=== PATIENT | female | born 1990 | race Caucasian/White ===

== ENCOUNTER → 2019-10-27 | Outpatient (CLI) | payer OTHER ==
[~2019-10-27] MED LIST: ACHD5005 PO; DOCU-143 PO; LAMO200T2 PO; LEVE750T5 PO; MUCINEX SINUS MAX NSEACH; NF-LAMO200 PO; NORG1TAB14 PO
[2019-10-27 12:36] LABS: BASOPHILS % (AUTO) 0 % (0-10); EOSINOPHILS # (AUTO) 0.1 10^3/uL (0.0-0.3); EOSINOPHILS % (AUTO) 1 % (0-10); HEMATOCRIT 41 % (35-52); HEMOGLOBIN 13.5 G/DL (11.5-16.0); LYMPHOCYTES # (AUTO) 2.1 X 10^3 (1.0-4.0); LYMPHOCYTES % (AUTO) 49 % (12-44); MEAN CORPUSCULAR HEMOGLOBIN 30 PG (25-34); MEAN CORPUSCULAR HGB CONC 33 G/DL (32-36); MEAN CORPUSCULAR VOLUME 88 FL (80-99); MEAN PLATELET VOLUME 10.5 FL (7.4-10.4); MONOCYTES # (AUTO) 0.3 X 10^3 (0.0-1.0); MONOCYTES % (AUTO) 6 % (0-12); NEUTROPHILS # (AUTO) 1.9 X 10^3 (1.8-7.8); NEUTROPHILS % (AUTO) 44 % (42-75); PLATELET COUNT 241 10^3/uL (130-400); RED CELL DISTRIBUTION WIDTH 12.9 % (10.0-14.5); WHITE BLOOD COUNT 4.3 10^3/uL (4.3-11.0)
[2019-10-27 12:55] LABS: ALANINE AMINOTRANSFERASE 13 U/L (0-55); ALBUMIN 4.7 GM/DL (3.2-4.5); ALKALINE PHOSPHATASE 46 U/L (40-136); BILIRUBIN,TOTAL 0.6 MG/DL (0.1-1.0); BUN/CREATININE RATIO 13; CALCIUM 9.2 MG/DL (8.5-10.1); CARBON DIOXIDE 21 MMOL/L (21-32); CHLORIDE 104 MMOL/L (98-107); CREATININE SERUM 0.83 MG/DL (0.60-1.30); GFR ESTIMATED > 60; GLUCOSE 89 MG/DL (70-105); POTASSIUM 3.8 MMOL/L (3.6-5.0); SODIUM 138 MMOL/L (135-145); TOTAL PROTEIN 7.5 GM/DL (6.4-8.2)
== END ==
LOC: LAB 11:53
PROVIDERS: ATTEND Orthopaedic Surgery
DX: G40.219 Localization-related (focal) (partial) symptomatic epilepsy and epileptic syndromes with complex partial seizures, intractable, without status epilepticus (principal)
CPT/HCPCS: 36415; 80053; 80175; 80177; 85025

== ENCOUNTER → 2021-03-03 | Outpatient (CLI) | payer OTHER ==
[~2021-03-03] MED LIST changes: -LAMO200T2 PO; +LAMO200T5 PO
--- NOTE | 2021-03-03 15:18 | Diagnostic Imaging Report ---
INDICATION: survey. TECHNIQUE: Multiple real-time grayscale images were obtained over the gravid uterus. COMPARISON: None FINDINGS: There is a single fetus in a breech presentation. heart rate was recorded at 140 bpm. Placenta is anterior. Amniotic fluid volume is normal. kidneys, bladder and stomach are unremarkable. brain is unremarkable. There is a four-chamber heart. There is a three-vessel cord with normal insertion. spine is grossly unremarkable, although longitudinal images of the spine are somewhat limited due to position. Biometrical measurements are as follows: Biparietal 4.57 cm, age 19 weeks 6 days. Head circumference 16.59 cm, age 19 weeks 3 days. Abdominal circumference 13.66 cm, age 19 weeks 1 days. Femur length 3.11 cm, age 19 weeks 5 days. Sonographic estimate age: 19 weeks 4 days. Sonographic estimated date of delivery: 07/24/21. Estimated Weight: 289 gm (+/- 42 gm). LMP percentile: 34%. heart rate: 140 beats per minute. number: 1 of 1. IMPRESSION: Single live IUP 19 weeks 4 days gestational age. Estimated date of confinement sonographically is 07/24/2021. Dictated by: Dictated on workstation # [id number]
== END ==
LOC: RAD 09:30
PROVIDERS: ATTEND Obstetrics & Gynecology
DX: Z34.02 Encounter for supervision of normal first pregnancy, second trimester (principal); Z3A.19 19 weeks gestation of pregnancy
CPT/HCPCS: 76805

== ENCOUNTER 2021-03-27 23:44 | Emergency (ER) | payer OTHER ==
[~2021-03-27] VITALS: Ht 162.6 cm; Wt 72.7 kg
[2021-03-27] MEDS ORDERED: ROCURONIUM 10 MG/ML 5 ML SYRINGE IV ONE (23:47)
[2021-03-27] MEDS ORDERED: ETOMIDATE IV SOLN 20 MG/10 ML VIAL IV ONE (23:47)
[2021-03-27] MEDS ORDERED: SODIUM BICARB 8.4% 50 MEQ/50 ML (ABBOTT) SYR INJ ONE (23:47)
[2021-03-27] MEDS ORDERED: LORazepam INJ 2 MG/ML (ATIVAN) VIAL ONE (23:49)
[2021-03-27] MEDS ORDERED: LACTATED RINGERS 1,000 ML IV STA (23:57)
[2021-03-28] MEDS ORDERED: PIPERACILLIN SODIUM/TAZOBACTAM 4.5 GM in NS (IVPB) 100 ML IV ONE ×2
[2021-03-28] MEDS ORDERED: MAGNESIUM 1 GM/100 ML IVPB 100 ML IV ONE
[2021-03-28 00:01] LABS: BASOPHILS # (AUTO) 0.1 10^3/uL (0.0-0.1); BASOPHILS % (AUTO) 0 % (0-10); EOSINOPHILS # (AUTO) 0.2 10^3/uL (0.0-0.3); EOSINOPHILS % (AUTO) 1 % (0-10); HEMATOCRIT 43 % (35-52); HEMOGLOBIN 13.2 g/dL (11.5-16.0); LYMPHOCYTES # (AUTO) 6.8 10^3/uL (1.0-4.0); LYMPHOCYTES % (AUTO) 19 % (12-44); MEAN CORPUSCULAR HEMOGLOBIN 30 pg (25-34); MEAN CORPUSCULAR HGB CONC 31 g/dL (32-36); MEAN CORPUSCULAR VOLUME 98 fL (80-99); MEAN PLATELET VOLUME 10.9 fL (9.0-12.2); MONOCYTES # (AUTO) 2.2 10^3/uL (0.0-1.0); MONOCYTES % (AUTO) 6 % (0-12); NEUTROPHILS # (AUTO) 23.6 10^3/uL (1.8-7.8); NEUTROPHILS % (AUTO) 65 % (42-75); PLATELET COUNT 319 10^3/uL (130-400)
[2021-03-28 00:04] LABS: WHITE BLOOD COUNT 36.2 10^3/uL (4.3-11.0)
--- NOTE | 2021-03-28 00:09 | ED Neurological Problem ---
General Stated Complaint: SEIZURES Source: other Exam Limitations: clinical condition (TY RUIZ) History of Present Illness Date Seen by Provider: March 27, 2021 Time Seen by Provider: 23:45 Initial Comments Patient ER by private conveyance with her significant other chief complaint she started having seizures about 2 hours ago and is woke up only 1 time from it. She has been vomiting. No history of fever. She has a history of epilepsy. She is 23 weeks and 1 day under the care of Dr. Jarrett. Her neurologist is in [place]. No recent history of illness. The patient is unable to co ntribute any history and appears to be postictal. (TY RUIZ) Allergies and Home Medications Allergies Coded Allergies: No Known Drug Allergies (Unverified , 11/29/15) Home Medications Docusate Sodium 100 Mg Capsule, 100 MG PO BID Prescribed by: YEE BURGOS on 11/30/15 0856 Hydrocodone Bit/Acetaminophen 1 Each Tablet, 1 TAB PO Q4H PRN Prescribed by: YEE BURGOS on 11/30/15 0856 Lamotrigine 200 Mg Tablet, 200 MG PO DAILY, (Reported) Lamotrigine 200 Mg Tab, 400 MG PO HS, (Reported) TAKES 2 (200 MG) TABLETS Levetiracetam 750 Mg Tablet, 750 MG PO BID, (Reported) Norgestimate-Ethinyl Estradiol 1 Each Tablet, 1 TAB PO DAILY, (Reported) [Mucinex Sinus Max] , 2-3 SPRAYS NSEACH Q12H PRN for CONGESTION, (Reported) Patient Home Medication List Home Medication List Reviewed: Yes (TY RUIZ) Review of Systems Review of Systems Constitutional: see HPI (TY RUIZ) All Other Systems Reviewed Negative Unless Noted: Yes (TY RUIZ) Past Azzffde-Cnfafv-Vwbosb Hx Immunizations Up To Date PED Vaccines UTD: Yes (TY RUIZ) Past Medical History Currently Using CPAP: No Currently Using BIPAP: No Seizure Disorder Reproductive Disorders: No Female Reproductive Disorders: Denies Sexually Transmitted Disease: No HIV/AIDS: No Adverse Reaction/Blood Tranf: No (TY RUIZ) Family Medical History Alcoholism 19 MOTHER Cardiovascular disease 19 FATHER Drug abuse 19 MOTHER Hypercholesterolemia 19 FATHER Physical Exam Vital Signs Vital Signs - First Documented 03/27/21 03/28/2103/28/21 23:50 00:02 01:25 Temp 36.7 Pulse 124 Resp 26 B/P (MAP) 109/74 (86) Pulse Ox 95 O2 Delivery Room Air O2 Flow Rate 10.00 FiO2 40 (MAGGIE CAMEJO MD) Vital Signs Capillary Refill : (TY RUIZ) Height, Weight, BMI Height: '" Weight: lbs. oz. kg; 26.37 BMI Method: General Appearance: WD/WN, no apparent distress HEENT: PERRL/EOMI, pharynx normal Neck: full range of motion, normal inspection Respiratory: no accessory muscle use, rales, rhonchi Cardiovascular: normal peripheral pulses, regular rate, rhythm Peripheral Pulses: 2+ Radial Pulses (R), 2+ Radial Pulses (L) Gastrointestinal: normal bowel sounds, non tender, soft Extremities: non-tender, normal inspection, normal capillary refill Neurologic/Psychiatric: alert (GCS 10), other (Postictal) Motor/Sensory: no motor deficit (Moving all 4 limbs 5 out of 5 motor strength) Skin: normal color, warm/dry (TY RUIZ) Focused Exam Lactate Level 03/27/21 23:55: Lactic Acid Level 19.28*H 03/28/21 02:17: Lactic Acid Level 6.30*H (MAGGIE CAMEJO MD) Lactic Acid Level Laboratory Tests Test 03/27/21 23:55 03/28/21 02:17 Lactic Acid Level 19.28 MMOL/L (0.50-2.00) *H 6.30 MMOL/L (0.50-2.00) *H (MAGGIE CAMEJO MD) Procedures/Interventions Reason for Intubation: Airway protection, metabolic acidosis, GCS from a 10 down to a 8 Date of ETT Placement: Mar 28, 2021 Time of ETT Placement: 01:29 Intubation Method: orotracheal Tube Size: 7.5 Medications: Etomidate (20 mg), Rocuronium (50 mg) Positive End Tide CO2: Yes (Fogged the tube on expiration) Breath Sounds after Intubation: right greater than left Intubation Complications: no complications Post Intubation Xray: Yes Tip of the ET tube at the right main bronchus. Anesthesia through etomidate and paralysis through rocuronium we prepared the patient had RT and appropriate staff at the bedside using a video laryngoscope were able to easily pass a 7.5 ET tube at 24 at the teeth. Patient's oxygen saturations did not go below 99%. We retracted the ET tube to 22 at the teeth and resecured it. Patient had good air sounds bilaterally and repeat chest x- ray demonstrated ET tube about 2-1/2 cm above the nora. Propofol was initiated at 20 mcg/kg (TY RUIZ) Progress/Results/Core Measures Results/Orders Lab Results Laboratory Tests Test 03/27/21 23:55 03/28/21 00:08 03/28/21 00:19 03/28/21 00:31 Range/Units White Blood Count 36.2 *H 4.3-11.0 10^3/uL Red Blood Count 4.42 3.80-5.11 10^6/uL Hemoglobin 13.2 11.5-16.0 g/dL Hematocrit 43 35-52 % Mean Corpuscular Volume 98 80-99 fL Mean Corpuscular Hemoglobin 30 25-34 pg Mean Corpuscular Hemoglobin Concent 31 L 32-36 g/dL Red Cell Distribution Width 13.6 10.0-14.5 % Platelet Count 319 130-400 10^3/uL Mean Platelet Volume 10.9 9.0-12.2 fL Immature Granulocyte % (Auto) 9 % Neutrophils (%) (Auto) 65 42-75 % Lymphocytes (%) (Auto) 19 12-44 % Monocytes (%) (Auto) 6 0-12 % Eosinophils (%) (Auto) 1 0-10 % Basophils (%) (Auto) 0 0-10 % Neutrophils # (Auto) 23.6 H 1.8-7.8 10^3/uL Lymphocytes # (Auto) 6.8 H 1.0-4.0 10^3/uL Monocytes # (Auto) 2.2 H 0.0-1.0 10^3/uL Eosinophils # (Auto) 0.2 0.0-0.3 10^3/uL Basophils # (Auto) 0.1 0.0-0.1 10^3/uL Immature Granulocyte # (Auto) 3.2 H 0.0-0.1 10^3/uL Neutrophils % (Manual) 65 % Lymphocytes % (Manual) 18 % Monocytes % (Manual) 9 % Band Neutrophils 8 % Blood Morphology Comment NORMAL Prothrombin Time 13.6 12.2-14.7 SEC INR Comment 1.0 0.8-1.4 Activated Partial Thromboplast Time 29 24-35 SEC Fibrinogen 506 H 221-496 MG/DL Sodium Level 141 135-145 MMOL/L Potassium Level 4.0 3.6-5.0 MMOL/L Chloride Level 102 98-107 MMOL/L Carbon Dioxide Level < 5 *L 21-32 MMOL/L Anion Gap 34 H 5-14 MMOL/L Blood Urea Nitrogen 8 7-18 MG/DL Creatinine 1.23 0.60-1.30 MG/DL Estimat Glomerular Filtration Rate 52 BUN/Creatinine Ratio 7 Glucose Level 123 H 70-105 MG/DL Lactic Acid Level 19.28 *H 0.50-2.00 MMOL/L Calcium Level 9.9 8.5-10.1 MG/DL Corrected Calcium 9.5 8.5-10.1 MG/DL Magnesium Level 2.6 H 1.6-2.4 MG/DL Total Bilirubin 0.2 0.1-1.0 MG/DL Aspartate Amino Transf (AST/SGOT) 26 5-34 U/L Alanine Aminotransferase (ALT/SGPT) 17 0-55 U/L Alkaline Phosphatase 103 40-136 U/L Total Creatine Kinase 116 29-168 U/L C-Reactive Protein High Sensitivity 0.31 0.00-0.50 MG/DL Total Protein 8.1 6.4-8.2 GM/DL Albumin 4.5 3.2-4.5 GM/DL Salicylates Level < 5.0 L 5.0-20.0 MG/DL Acetaminophen Level < 10 L 10-30 UG/ML Serum Alcohol < 10 <10 MG/DL Influenza Type A (RT-PCR) Not Detected Not Detecte Influenza Type B (RT-PCR) Not Detected Not Detecte SARS-CoV-2 RNA (RT-PCR) Not Detected Not Detecte Blood Gas Puncture Site LEFT RADIAL Blood Gas Patient Temperature 36.7 Arterial Blood pH 6.94 *L 7.37-7.43 Arterial Blood Partial Pressure CO2 38 35-45 MMHG Arterial Blood Partial Pressure O2 135 H 79-93 MMHG Arterial Blood HCO3 8 *L 23-27 MMOL/L Arterial Blood Total CO2 9.0 L 21.0-31.0 MMOL/L Arterial Blood Oxygen Saturation 96 94-100 % Arterial Blood Base Excess -22.0 L -2.5-2.5 MMOL/L Anirudh Test YES-POS Blood Gas Ventilator Setting NO Blood Gas Inspired Oxygen ROOM AIR Urine Color YELLOW Urine Clarity CLEAR Urine pH 5.5 5-9 Urine Specific [place] >=1.030 1.016-1.022 Urine Protein 2+ H NEGATIVE Urine Glucose (UA) NEGATIVE NEGATIVE Urine Ketones NEGATIVE NEGATIVE Urine Nitrite NEGATIVE NEGATIVE Urine Bilirubin NEGATIVE NEGATIVE Urine Urobilinogen 0.2 < = 1.0 MG/DL Urine Leukocyte Esterase NEGATIVE NEGATIVE Urine RBC (Auto) 2+ H NEGATIVE Urine RBC 2-5 H /HPF Urine WBC RARE /HPF Urine Squamous Epithelial Cells 5-10 /HPF Urine Crystals PRESENT H /LPF Urine Amorphous Sediment LARGE KAREEM URATES H /LPF Urine Bacteria TRACE /HPF Urine Casts PRESENT /LPF Urine Hyaline Casts 0-2 H /LPF Urine Mucus NEGATIVE /LPF Urine Culture Indicated NO Urine Opiates Screen NEGATIVE NEGATIVE Urine Oxycodone Screen NEGATIVE NEGATIVE Urine Methadone Screen NEGATIVE NEGATIVE Urine Propoxyphene Screen NEGATIVE NEGATIVE Urine Barbiturates Screen NEGATIVE NEGATIVE Ur Tricyclic Antidepressants Screen NEGATIVE NEGATIVE Urine Phencyclidine Screen NEGATIVE NEGATIVE Urine Amphetamines Screen NEGATIVE NEGATIVE Urine Methamphetamines Screen NEGATIVE NEGATIVE Urine Benzodiazepines Screen NEGATIVE NEGATIVE Urine Cocaine Screen NEGATIVE NEGATIVE Urine Cannabinoids Screen NEGATIVE NEGATIVE Test 03/28/21 02:17 03/28/21 02:20 03/28/21 07:13 03/28/21 07:18 Range/Units Lactic Acid Level 6.30 *H 0.50-2.00 MMOL/L Blood Gas Puncture Site LEFT RADIAL L RADIAL Blood Gas Patient Temperature 37.0 36.7 Arterial Blood pH 7.41 7.45 H 7.37-7.43 Arterial Blood Partial Pressure CO2 33 L 28 L 35-45 MMHG Arterial Blood Partial Pressure O2 154 H 74 L 79-93 MMHG Arterial Blood HCO3 21 L 19 L 23-27 MMOL/L Arterial Blood Total CO2 21.7 19.8 L 21.0-31.0 MMOL/L Arterial Blood Oxygen Saturation 95 96 94-100 % Arterial Blood Base Excess -3.2 L -4.5 L -2.5-2.5 MMOL/L Anirudh Test YES-POS YES-POS Blood Gas Ventilator Setting YES YES Blood Gas Inspired Oxygen 40% NA White Blood Count 17.1 H 4.3-11.0 10^3/uL Red Blood Count 3.43 L 3.80-5.11 10^6/uL Hemoglobin 10.3 #L 11.5-16.0 g/dL Hematocrit 31 L 35-52 % Mean Corpuscular Volume 91 80-99 fL Mean Corpuscular Hemoglobin 30 25-34 pg Mean Corpuscular Hemoglobin Concent 33 32-36 g/dL Red Cell Distribution Width 13.8 10.0-14.5 % Platelet Count 212 130-400 10^3/uL Mean Platelet Volume 11.2 9.0-12.2 fL Immature Granulocyte % (Auto) 3 % Neutrophils (%) (Auto) 83 H 42-75 % Lymphocytes (%) (Auto) 7 L 12-44 % Monocytes (%) (Auto) 7 0-12 % Eosinophils (%) (Auto) 0 0-10 % Basophils (%) (Auto) 0 0-10 % Neutrophils # (Auto) 14.2 H 1.8-7.8 10^3/uL Lymphocytes # (Auto) 1.3 1.0-4.0 10^3/uL Monocytes # (Auto) 1.2 H 0.0-1.0 10^3/uL Eosinophils # (Auto) 0.0 0.0-0.3 10^3/uL Basophils # (Auto) 0.1 0.0-0.1 10^3/uL Immature Granulocyte # (Auto) 0.4 H 0.0-0.1 10^3/uL Sodium Level 137 135-145 MMOL/L Potassium Level 3.1 L 3.6-5.0 MMOL/L Chloride Level 108 H 98-107 MMOL/L Carbon Dioxide Level 15 L 21-32 MMOL/L Anion Gap 14 5-14 MMOL/L Blood Urea Nitrogen 8 7-18 MG/DL Creatinine 0.70 0.60-1.30 MG/DL Estimat Glomerular Filtration Rate > 60 BUN/Creatinine Ratio 11 Glucose Level 113 H 70-105 MG/DL Calcium Level 8.3 L 8.5-10.1 MG/DL Magnesium Level 2.2 1.6-2.4 MG/DL (MAGGIE CAMEJO MD) Micro Results Microbiology 03/28/21 Blood Culture - Preliminary, Resulted No growth 03/27/21 Blood Culture - Preliminary, Resulted No growth (MAGGIE CAMEJO MD) My Orders Orders - MAGGIE CAMEJO MD Basic Metabolic Panel (03/28/21 06:31) Magnesium (03/28/21 06:31) Chest 1 View, Ap/Pa Only (03/28/21 06:31) Lactated Ringers (Lr 1000 Ml Iv Solution (03/28/21 07:00) Arterial Blood Gas (03/28/21 07:18) Propofol Injection (Diprivan Injection) (03/28/21 07:09) Propofol Drip (Icu) (Diprivan Drip (Icu) (03/28/21 07:10) Morphine Injection (Morphine Injection (03/28/21 07:37) Sputum Culture (03/28/21 07:38) Cbc With Automated Diff (03/28/21 07:43) Potassium Cl 10meq/50ml Ivpb (Kcl 10 Meq (03/28/21 08:15) Morphine Injection (Morphine Injection (03/28/21 08:56) Rocuronium 5 Ml Syringe (Rocuronium 5 Ml (03/27/21 23:47) Etomidate Injection (Amidate Injection) (03/27/21 23:47) Sodium Bicarbonate 8.4% Syr (Sodium Bica (03/27/21 23:47) Ekg Tracing (03/28/21 00:01) Propofol Drip (Icu) (Diprivan Drip (Icu) (03/28/21 09:00) (MAGGIE CAMEJO MD) Medications Given in ED (MAGGIE CAMEJO MD) Vital Signs/I&O 03/27/21 03/28/21 03/28/21 03/28/21 23:50 00:02 01:25 02:37 Temp 36.7 Pulse 124 121 128 Resp 26 40 35 B/P (MAP) 109/74 (86) Pulse Ox 95 95 94 96 O2 Delivery Room Air OxyMask O2 Flow Rate 10.00 FiO2 40 40 03/28/21 03/28/21 03/28/21 06:24 07:29 09:28 Pulse 118 117 100 Resp 23 12 B/P (MAP) 108/63 101/64 Pulse Ox 96 98 O2 Delivery Mechanical Ventilator FiO2 30 (MAGGIE CAMEJO MD) Progress Progress Note #1: Time: 00:05 Progress Note Patient has coarse lung sounds and oxygen saturations 94 to 95% on room air with nonlabored breathing. She has emesis at her nostrils. A nasopharyngeal airway was placed and she was able to deep suction out a fair amount of emesis through the MPA. Put her on Zosyn got some blood cultures chest x-ray ordered labs. We will check a magnesium level. She does not have any edema and her blood pressure is 109/60 so she does not appear to be eclamptic. We will give her a gram of magnesium in addition to a couple liters of fluid and treat her for presumed aspiration pneumonia. We will get a Covid swab. ABG. She has good end-tidal CO2 in the low 30s. She has bruises on her forehead as well as her leg. We will get a CT of her head and C-spine since we do not know she had any trauma from falling from the seizure. Shortly after arrival she had about a 45-second seizure and was given 2 mg Ativan IV. Progress Note #2: Time: 00:20 Progress Note After the first dose of Ativan she was given a second dose of Ativan 2 mg IV because she had another 1 minute for second tonic-clonic seizure. Toxicology panel was added. We have been able to suction up some more secretions. ABG was obtained. Blood pressure 118/64. Progress Note #3: Time: 00:58 Progress Note ABG metabolic acidosis. Expected lactic acidosis and elevated white count due to likely aspiration and recent seizure. Status epilepticus. She is oxygenating well. We did give her some supplemental oxygen and also another milligram of Ativan before going down for a CT of her head. We will also get dopplered heart tones at 150-155. Unable to complete a CT so we elected to go ahead and intubate to further protect her airway and because of her lack of neurologic recovery and metabolic acidosis. Progress Note #4: Time: 01:48 Progress Note Family has been updated throughout the process as well as been allowed to come back and visit with her one at a time. We did have a discussion with the significant other, mom and dad. We explained why we intubated and that the options for transfer to a facility with appropriate neurology care were explored and we could try [facility]. They said that [facility] is closer for family and would prefer to go there. [facility] advises that it may be here later in the morning before they can accept her because of a shortage of critical care beds. We paged them and they will call us back with a physician. Progress Note #5: Time: 02:27 Progress Note Got up on her propofol and were going to initiate a 60 mg/kg bolus of Keppra IV. We have given her 1 g of Keppra and will give 2 more grams and reassess for a total of 3 g before we give her the fourth gram for treatment of refractory status epilepticus. Repeat ABG demonstrated good improvement of her metabolic acidosis and her lactate was closing now down to 6. We are going to give her some IV fluids at 150 an hour which is a little less than 1-1/2 times maintenance. We increased her propofol to 40 mcg/kg/min in conjunction with the laborer brush clearing's request. We also decreased her FiO2 to 30% and she is maintaining good saturations in 97 to 99% range. Progress Note #6: Time: 07:00 Progress Note Turned over care of the patient to Dr. Garcia. Discussed the case in front of the significant other and answered questions. The plan is to repeat Zosyn and another couple hours when it is due as well as recheck a BMP, chest x-ray. (TY RUIZ) Progress Note #1: Time: 06:49 Progress Note Care of this patient was assumed from Dr. Ruiz at shift change. Bedside report was received. Patient appears fairly comfortable on the ventilator. We will obtain morning labs, ABG, and chest x-ray as we are still awaiting transfer. Transfer is pending bed availability at [facility]. We have provided the significant other with an update. Blood pressures have been low normotensive. We will administer a 500 mL LR bolus and continue to monitor. Progress Note #2: Time: 08:11 Progress Note ABG and labs were reviewed. Based on ABG results we will increase FiO2 to 40% and decrease rate to 12. Blood pressure has improved with fluid bolus. Patient did seem a bit restless and received morphine 4 mg IV which seemed to help. Potassium is low and we will replace that by IV route. [facility] [place]. They still do not have an open bed. I checked with the [facility] in [place] after shift change and spoke with Dr. Aldana (laborer brush clearing) and (urologist). While they now have a bed available, they do not have continuous EEG capability which this patient will require. For that reason they declined transfer. I did confirm with [facility] that continuous EEG monitoring is available there. We have also checked with flight crews to determine if transfer by flight is possible. Currently there are no aircraft available due to availability and/or weather restrictions. Patient's mother has been updated. Patient has not exhibited any suspected seizure-like activity since I assumed care. Progress Note #3: Time: 08:32 Progress Note [facility] has provided bed assignment. Patient remained stable at this time. Air transportation is not possible due to weather limitations. Patient will transfer by [facility]. heart tones were 150. (MAGGIE CAMEJO MD) Initial ECG Impression Date: Mar 28, 2021 Initial ECG Impression Time: 00:01 Initial ECG Rate: 119 Initial ECG Rhythm: S.Tach Initial ECG Intervals: Normal Initial ECG Impression: Normal, Nonspecific Changes Comment Sinus tachycardia without clinically relevant ST elevation. (TY RUIZ) Diagnostic Imaging Diagonstic Imaging: Xray Plain Films/CT/US/NM/MRI: chest Comments ET tube 2 cm above the nora with no evidence of infiltrates or pneumothorax. NAME: ARLENE LLOYD MED REC#: [id number] PT STATUS: REG ER : 1990 PHYSICIAN: TY RUIZ MD ADMIT DATE: 03/27/21/ER Draft Date of Exam:03/28/21 CHEST 1 VIEW, AP/PA ONLY CHEST 1 VIEW, AP/PA ONLY Indication: Intubation, seizure Comparison: None available. Findings: ET tube has tip 3.5 cm above the nora. Nasogastric tube has tip and side-port in the proximal stomach. Low lung volumes with no consolidations. Posterior lower lobes are poorly evaluated by portable radiography. No pleural effusion or pneumothorax. Normal cardiac silhouette. Impression: 1. Well-positioned support devices. 2. No acute process by radiography. Dictated on workstation # [id number] Dict: 03/28/2130 Trans: 03/28/21 0647 DIANN [id number] Interpreted by: FAUSTO CRUZ MD Electronically signed by: Reviewed: Reviewed by Me Diagonstic Imaging: CT (Without IV contrast) Plain Films/CT/US/NM/MRI: c-spine, head Comments No acute findings CT head. No acute cervical spine findings. Reviewed: [facility], Reviewed by Me (TY RUIZ) Comments NAME: ARLENE LLOYD [facility] REC#: [id number] PT STATUS: REG ER : 1990 PHYSICIAN: TY RUIZ MD ADMIT DATE: 03/27/21/ER Signed Date of Exam:03/28/21 CT HEAD/CERVICAL SPINE WO PROCEDURE: CT head and CT cervical spine without contrast. TECHNIQUE: Multiple contiguous axial images were obtained through the brain and cervical spine without the use of intravenous contrast. Sagittal and coronal reformations through the cervical spine were then performed. Auto Exposure Controls were utilized during the CT exam to meet ALARA standards for radiation dose reduction. INDICATION: Trauma, seizure COMPARISON: None available. FINDINGS: Head: No hyperdense hemorrhage or space-occupying mass. No hydrocephalus or midline shift. No evidence of territorial infarct. Basilar cisterns are patent. No focal scalp swelling. No skull fracture. The paranasal sinuses and mastoid air cells are clear. Cervical spine: No acute fracture or traumatic malalignment. No high-grade spinal canal narrowing. ET and nasogastric tubes are in place. No cervical lymphadenopathy. Visualized thyroid is normal. IMPRESSION: 1. No acute intracranial process or skull fracture. 2. No acute fracture or traumatic malalignment of the cervical spine. 3. Findings are in agreement with the preliminary report. Dictated by: Dictated on workstation # [id number] Dict: 03/28/21626 Trans: 03/28/21629 [facility] [id number] Interpreted by: FAUSTO CRUZ MD Electronically signed by: FAUSTO CRUZ MD 03/28/21629 Diagonstic Imaging: Xray Plain Films/CT/US/NM/MRI: chest Comments Repeat chest x-ray viewed by me and compared with prior. Report reviewed. See report below: NAME: ARLENE LLOYD [facility] REC#: [id number] PT STATUS: REG ER : 1990 PHYSICIAN: TY RUIZ MD ADMIT DATE: 03/27/21/ER Signed Date of Exam:03/28/21 CHEST 1 VIEW, AP/PA ONLY Indication: Intubation, seizure Comparison: None available. Findings: ET tube has tip 3.5 cm above the nora. Nasogastric tube has tip and side-port in the proximal stomach. Low lung volumes with no consolidations. Posterior lower lobes are poorly evaluated by portable radiography. No pleural effusion or pneumothorax. Normal cardiac silhouette. Impression: 1. Well-positioned support devices. 2. No acute process by radiography. Dictated by: Dictated on workstation # [id number] Dict: 03/28/21629 Trans: 03/28/21 0745 DIANN [id number] Interpreted by: FAUSTO CRUZ MD Electronically signed by: FAUSTO CRUZ MD 03/28/2145 (MAGGIE CAMEJO MD) Critical Care Note Critical Care Start Time: 23:45 Stop Time: 03:30 Total Time (minutes) 225 minutes Progress I attest to 225 minutes of critical care time outside of intubation and procedures. The patient required extensive management and going between family as well as multiple specialties to get her appropriately transferred. We had to adjust her ventilator and as well as her medications to control her antiepileptics. (TY RUIZ) Departure Impression Primary Impression: Status epilepticus Additional Impressions: Aspiration pneumonia Qualified Codes: J69.0 - Pneumonitis due to inhalation of food and vomit Qualified Codes: Z3A.23 - 23 weeks gestation of Hypokalemia Disposition: XF [facility]-TRM HOSP Condition: Stable Transfer Transfer Reason: Exceeds level of care Time Spoke to Accepting Phy: 03:30 Transfer Progress Notes [facility] does not have critical care beds. [facility] and he declined the patient and recommend we send her to a higher level of care as he does not have onsite neurology to help manage her. 0200: Paged [facility] physician. 0220: Patient is accepted by the laborer brush clearing Dr. Mancera at [place], [place]. 0225: Discussed the case with Dr. Blankenship, electrical and radio aircraft mechanic at [place], [place]. He agrees with our assessment thus far that despite her having 2+ proteinuria she has no history of preeclampsia and it would be unusual at 23 weeks and she certainly appears to have a history of eclampsia and this appears to be the source of her seizures and neurologic presentation. He agrees with our treatment plan and plans to see the patient after she arrives. 0330: Discussed the case with Dr. Mancera who recommends we keep the propofol above 40 mcg/kg/min before we transfer the patient. Transfer Facility: [facility] (TY RUIZ) Transfer Time: 09:36 Method of Transfer: EMS (MAGGIE CAMEJO MD) Departure-Patient Inst. Referrals: NO,LOCAL PHYSICIAN (PCP/Family) Primary Care Physician Copy Copies To 1: SWATHI JARRETT TITUS J Mar 28, 2021 00:09 MAGGIE CAMEJO MD Mar 28, 2021 06:51
[2021-03-28 00:12] LABS: ALBUMIN 4.5 GM/DL (3.2-4.5); CHLORIDE 102 MMOL/L (98-107); SODIUM 141 MMOL/L (135-145)
[2021-03-28 00:13] LABS: CALCIUM 9.9 MG/DL (8.5-10.1)
[2021-03-28 00:14] LABS: GLUCOSE 123 MG/DL (70-105); TOTAL PROTEIN 8.1 GM/DL (6.4-8.2)
[2021-03-28] MEDS ORDERED: LORazepam INJ 2 MG/ML (ATIVAN) VIAL IVP ONE ×5 (00:15→02:45)
[2021-03-28] MEDS ORDERED: LACTATED RINGERS 1,000 ML IV ONE ×2 (00:15→07:00)
[2021-03-28 00:16] LABS: BILIRUBIN,TOTAL 0.2 MG/DL (0.1-1.0)
[2021-03-28 00:17] LABS: ALKALINE PHOSPHATASE 103 U/L (40-136)
[2021-03-28 00:18] LABS: CREATININE SERUM 1.23 MG/DL (0.60-1.30); GFR ESTIMATED 52
[2021-03-28 00:19] LABS: BUN/CREATININE RATIO 7; PROTHROMBIN TIME PATIENT 13.6 SEC (12.2-14.7)
[2021-03-28 00:21] LABS: ALANINE AMINOTRANSFERASE 17 U/L (0-55); MAGNESIUM 2.6 MG/DL (1.6-2.4)
[2021-03-28 00:23] LABS: ABG OXYGEN SATURATION 96 % (94-100); ABG PCO2 38 MMHG (35-45); ABG PO2 135 MMHG (79-93)
[2021-03-28 00:31] LABS: ABG PH 6.94 (7.37-7.43); ALLENS TEST YES-POS; INSPIRED O2 ROOM AIR; PATIENT TEMP 36.7; VENTILATOR NO
[2021-03-28 00:32] LABS: CARBON DIOXIDE < 5 MMOL/L (21-32)
[2021-03-28 00:37] LABS: BILIRUBIN,URINE NEGATIVE (NEGATIVE); CLARITY,URINE CLEAR; COLOR,URINE YELLOW; GLUCOSE, URINE (UA) NEGATIVE (NEGATIVE); KETONES,URINE NEGATIVE (NEGATIVE); LEUKOCYTE ESTERASE ,URINE NEGATIVE (NEGATIVE); NITRITE,URINE NEGATIVE (NEGATIVE); PH,URINE 5.5 (5-9); PROTEIN,URINE 2+ (NEGATIVE)
[2021-03-28 00:40] LABS: SALICYLATE < 5.0 MG/DL (5.0-20.0)
[2021-03-28 00:43] LABS: ACETAMINOPHEN < 10 UG/ML (10-30)
[2021-03-28 00:45] LABS: AMORPHOUS SEDIMENT,UR LARGE AMOR URATES /LPF; BACTERIA,URINE TRACE /HPF; HYALINE CASTS, URINE 0-2 /LPF; WBC,URINE RARE /HPF
[2021-03-28 00:49] LABS: AMPHETAMINE SCREEN, URINE NEGATIVE (NEGATIVE); BARBITURATE SCREEN URINE NEGATIVE (NEGATIVE); BENZODIAZEPINES SCREEN URINE NEGATIVE (NEGATIVE); CANNABINOID SCREEN, URINE NEGATIVE (NEGATIVE); COCAINE SCREEN URINE NEGATIVE (NEGATIVE); METHADONE STAT NEGATIVE (NEGATIVE); METHAMPHETAMINE SCREEN URINE S NEGATIVE (NEGATIVE); OPIATE SCREEN URINE NEGATIVE (NEGATIVE); OXYCODONE STAT NEGATIVE (NEGATIVE); PROPOXYPHENE STAT NEGATIVE (NEGATIVE); TRICYCLIC ANTIDEPRESSANTS SCRE NEGATIVE (NEGATIVE)
[2021-03-28 00:50] LABS: BAND NEUTROPHILS 8 %; LYMPHOCYTES % (MANUAL) 18 %; MONOCYTES % (MANUAL) 9 %; NEUTROPHILS % (MANUAL) 65 %; RBC MORPH NORMAL
[2021-03-28] MEDS ORDERED: PROPOFOL DRIP (ICU) 100 ML IV ONE ×3 (01:00→09:00)
[2021-03-28] MEDS ORDERED: SODIUM BICARB 8.4% 50 MEQ/50 ML VIAL IV ONE (01:00)
[2021-03-28] MEDS ORDERED: proPOfol 200 MG/20 ML (DIPRIVAN) VIAL IV ONE ×2 (01:15→07:09)
[2021-03-28 01:25] VITALS: BP 138/83
[2021-03-28 02:26] LABS: ABG BASE EXCESS -3.2 MMOL/L (-2.5-2.5); ABG OXYGEN SATURATION 95 % (94-100); ABG PCO2 33 MMHG (35-45); ABG PH 7.41 (7.37-7.43); ABG PO2 154 MMHG (79-93); ABG TCO2 21.7 MMOL/L (21.0-31.0)
[2021-03-28 02:27] LABS: ALLENS TEST YES-POS; INSPIRED O2 40%; VENTILATOR YES
[2021-03-28 02:37] VITALS: BP 105/70
[2021-03-28] MEDS ORDERED: 1/2 NS IV SOLUTION 1,000 ML IV SCH (05:00)
[2021-03-28 06:24] VITALS: BP 97/51
--- NOTE | 2021-03-28 06:32 | Diagnostic Imaging Report ---
PROCEDURE: CT head and CT cervical spine without contrast. TECHNIQUE: Multiple contiguous axial images were obtained through the brain and cervical spine without the use of intravenous contrast. Sagittal and coronal reformations through the cervical spine were then performed. Auto Exposure Controls were utilized during the CT exam to meet ALARA standards for radiation dose reduction. INDICATION: Trauma, seizure COMPARISON: None available. FINDINGS: Head: No hyperdense hemorrhage or space-occupying mass. No hydrocephalus or midline shift. No evidence of territorial infarct. Basilar cisterns are patent. No focal scalp swelling. No skull fracture. The paranasal sinuses and mastoid air cells are clear. Cervical spine: No acute fracture or traumatic malalignment. No high-grade spinal canal narrowing. ET and nasogastric tubes are in place. No cervical lymphadenopathy. Visualized thyroid is normal. IMPRESSION: 1. No acute intracranial process or skull fracture. 2. No acute fracture or traumatic malalignment of the cervical spine. 3. Findings are in agreement with the preliminary report. Dictated by: Dictated on workstation # [id number]
--- NOTE | 2021-03-28 06:47 | Diagnostic Imaging Report ---
CHEST 1 VIEW, AP/PA ONLY Indication: Intubation, seizure Comparison: None available. Findings: ET tube has tip 3.5 cm above the nora. Nasogastric tube has tip and side-port in the proximal stomach. Low lung volumes with no consolidations. Posterior lower lobes are poorly evaluated by portable radiography. No pleural effusion or pneumothorax. Normal cardiac silhouette. Impression: 1. Well-positioned support devices. 2. No acute process by radiography. Dictated by: Dictated on workstation # [id number]
--- NOTE | 2021-03-28 06:58 | Diagnostic Imaging Report ---
CHEST 1 VIEW, AP/PA ONLY Indication: Repositioning of support devices Comparison: Earlier same day at 1:45 AM Findings: ET tube has tip 4 cm above the nora. Stable enteric tube. New hazy opacities in right lung base. No pleural effusion or pneumothorax. Normal cardiac silhouette. Impression: 1. Support devices remain well positioned. 2. New right basilar opacities could be due to aspiration edema. Dictated by: Dictated on workstation # [id number]
[2021-03-28 07:30] LABS: ABG BASE EXCESS -4.5 MMOL/L (-2.5-2.5); ABG OXYGEN SATURATION 96 % (94-100); ABG PCO2 28 MMHG (35-45); ABG PH 7.45 (7.37-7.43); ABG PO2 74 MMHG (79-93); ABG TCO2 19.8 MMOL/L (21.0-31.0)
[2021-03-28 07:32] LABS: ALLENS TEST YES-POS
[2021-03-28 07:33] LABS: PATIENT TEMP 36.7; VENTILATOR YES
[2021-03-28] MEDS ORDERED: morphine INJ 10 MG/ML 1ML (SYR OR VIAL) IVP STA ×2 (07:37→08:56)
[2021-03-28 07:40] LABS: CHLORIDE 108 MMOL/L (98-107); POTASSIUM 3.1 MMOL/L (3.6-5.0); SODIUM 137 MMOL/L (135-145)
[2021-03-28 07:41] LABS: CALCIUM 8.3 MG/DL (8.5-10.1)
[2021-03-28 07:42] LABS: GLUCOSE 113 MG/DL (70-105)
[2021-03-28 07:43] LABS: CARBON DIOXIDE 15 MMOL/L (21-32)
[2021-03-28 07:46] LABS: GFR ESTIMATED > 60
[2021-03-28 07:47] LABS: BUN/CREATININE RATIO 11
[2021-03-28 07:48] LABS: MAGNESIUM 2.2 MG/DL (1.6-2.4)
[2021-03-28 07:50] LABS: BASOPHILS # (AUTO) 0.1 10^3/uL (0.0-0.1); BASOPHILS % (AUTO) 0 % (0-10); EOSINOPHILS % (AUTO) 0 % (0-10); HEMATOCRIT 31 % (35-52); LYMPHOCYTES # (AUTO) 1.3 10^3/uL (1.0-4.0); LYMPHOCYTES % (AUTO) 7 % (12-44); MEAN CORPUSCULAR HEMOGLOBIN 30 pg (25-34); MEAN CORPUSCULAR HGB CONC 33 g/dL (32-36); MEAN CORPUSCULAR VOLUME 91 fL (80-99); MEAN PLATELET VOLUME 11.2 fL (9.0-12.2); MONOCYTES # (AUTO) 1.2 10^3/uL (0.0-1.0); MONOCYTES % (AUTO) 7 % (0-12); NEUTROPHILS # (AUTO) 14.2 10^3/uL (1.8-7.8); NEUTROPHILS % (AUTO) 83 % (42-75); PLATELET COUNT 212 10^3/uL (130-400); WHITE BLOOD COUNT 17.1 10^3/uL (4.3-11.0)
[2021-03-28 07:59] LABS: HEMOGLOBIN 10.3 g/dL (11.5-16.0)
[2021-03-28] MEDS ORDERED: POTASSIUM CL 10MEQ/50ML IVPB 50 ML IV ONE (08:15)
[2021-03-28 09:28] VITALS: BP 101/64
== END 2021-03-28 10:08 | disposition short-term general hospital (02) ==
LOC: EDUNIT# 23:44 → ER 23:46
DX: O99.352 Diseases of the nervous system complicating pregnancy, second trimester (principal); G40.901 Epilepsy, unspecified, not intractable, with status epilepticus; O99.512 Diseases of the respiratory system complicating pregnancy, second trimester; J69.0 Pneumonitis due to inhalation of food and vomit; O99.282 Endocrine, nutritional and metabolic diseases complicating pregnancy, second trimester; E87.6 Hypokalemia; Z3A.23 23 weeks gestation of pregnancy
CPT/HCPCS: 31500; 51702; 70450; 71045; 72125; 80048; 80053; 80306; 81000; 82550; 82805; 83605 ×2; 83735 ×2; 85007; 85025; 85027; 85384; 85610; 85730; 86141; 87040 ×2; 87070; 87205; 87636; 93005; 94002; 94799; 99291; 99292; G0480 ×3; 36415; 80320; 80329

== ENCOUNTER → 2021-06-13 | Outpatient (CLI) | payer OTHER ==
--- NOTE | 2021-06-13 14:25 | Diagnostic Imaging Report ---
INDICATION: High risk . BPP and risk of growth restriction (maternal seizure). TECHNIQUE: Multiple Real-time grayscale images were obtained over the gravid uterus. COMPARISON: None. FINDINGS: The cervix measures 4.7 cm in length and is closed. The fetus is in cephalic presentation. The placenta is anteriorly positioned and has no previa. The placenta is normal in thickness and echogenicity. The NIDHI is normal at 16.3 cm. A biophysical profile was performed and the fetus scored a 2/2 for breathing movements, movements, posture and tone, as well as amniotic fluid volume. Therefore, the biophysical profile score is 8/8. Biometrical measurements are as follows: Biparietal 8.45 cm, age 34 weeks 1 days. Head circumference 30.54 cm, age 34 weeks 0 days. Abdominal circumference 28.98 cm, age 33 weeks 0 days. Femur length 6.57 cm, age 33 weeks 6 days. Sonographic estimate age: 33 weeks 6 days. Sonographic estimated date of delivery: 07/26/21. Estimated Weight: 2195 gm (+/- 321 gm). LMP percentile: 24%. heart rate: 163 beats per minute. number: 1 of 1. IMPRESSION: 1. Single live intrauterine with an estimated weight at the 24th percentile for gestational age. 2. Normal biophysical profile. Dictated by: Dictated on workstation # [id number]
== END ==
LOC: RAD 12:30
PROVIDERS: ATTEND Obstetrics & Gynecology
DX: O09.93 Supervision of high risk pregnancy, unspecified, third trimester (principal); Z3A.33 33 weeks gestation of pregnancy
CPT/HCPCS: 76805; 76819

== ENCOUNTER → 2021-06-20 | Outpatient (CLI) | payer OTHER ==
--- NOTE | 2021-06-20 09:56 | Diagnostic Imaging Report ---
INDICATION: High risk . FINDINGS: There is a single live intrauterine fetus currently breech. Amniotic fluid index is normal. Fetus is active with good tone. breathing was noted. heart rate 147 bpm. Amniotic fluid index is 15. IMPRESSION: Normal biophysical profile scoring 8 of potential 8 points by ultrasound. Dictated by: Dictated on workstation # [id number]
== END ==
LOC: RAD 09:00
PROVIDERS: ATTEND Obstetrics & Gynecology
DX: O09.93 Supervision of high risk pregnancy, unspecified, third trimester (principal)
CPT/HCPCS: 76819

== ENCOUNTER → 2021-07-11 | Outpatient (CLI) | payer OTHER ==
--- NOTE | 2021-07-11 09:49 | Diagnostic Imaging Report ---
INDICATION: HIGH RISK TECHNIQUE: The fetus was observed for purposes of a biophysical profile evaluation. FINDINGS: Intrauterine is currently in a cephalic presentation. The placenta is along the anterior aspect without evidence for previa. cardiac activity at 144 beats per minute. Normal amount of amniotic fluid with an index at 14.36 cm. Cervical length at 3.45 cm Biophysical Profile Scoring: breathin Body movement: 2 tone: 2 Amniotic fluid: 2 Total BPP Score: 8/8 IMPRESSION: 1. Normal biophysical profile score. Dictated by: Dictated on workstation # [id number]
== END ==
LOC: RAD 08:52
PROVIDERS: ATTEND Obstetrics & Gynecology
DX: O09.93 Supervision of high risk pregnancy, unspecified, third trimester (principal)
CPT/HCPCS: 76819

== ENCOUNTER 2021-07-17 07:00 | Inpatient (IN) | payer OTHER ==
[2021-07-17] VITALS (44 sets, daily range): BP systolic 91–125; BP diastolic 55–81
[~2021-07-17] VITALS: Ht 160 cm; Wt 75.3 kg
[2021-07-17] MEDS ORDERED: OXYTOCIN PRE-MIX DRIP 500 ML IV SCH ×2 (08:15→15:30)
[2021-07-17] MEDS ORDERED: D5 LR IV SOLUTION 1,000 ML IV SCH (08:15)
[2021-07-17] MEDS ORDERED: MINERAL OIL CONCENTRATE 99.9% 15 ML UDC TOP PRN (08:15)
[2021-07-17 08:46] LABS: BASOPHILS % (AUTO) 0 % (0-10); EOSINOPHILS # (AUTO) 0.1 10^3/uL (0.0-0.3); EOSINOPHILS % (AUTO) 1 % (0-10); HEMATOCRIT 37 % (35-52); HEMOGLOBIN 12.2 g/dL (11.5-16.0); LYMPHOCYTES % (AUTO) 21 % (12-44); MEAN CORPUSCULAR HEMOGLOBIN 30 pg (25-34); MEAN CORPUSCULAR HGB CONC 33 g/dL (32-36); MEAN CORPUSCULAR VOLUME 91 fL (80-99); MEAN PLATELET VOLUME 11.2 fL (9.0-12.2); MONOCYTES # (AUTO) 0.8 10^3/uL (0.0-1.0); MONOCYTES % (AUTO) 9 % (0-12); NEUTROPHILS # (AUTO) 6.3 10^3/uL (1.8-7.8); NEUTROPHILS % (AUTO) 66 % (42-75); PLATELET COUNT 193 10^3/uL (130-400); WHITE BLOOD COUNT 9.5 10^3/uL (4.3-11.0)
--- NOTE | 2021-07-17 09:09 | History & Physical-OB/GYN ---
VALDO MILIAN 07/17[birth year]109: OB - Chief Complaint & HPI Date/Time Date of Admission: Date of Admission: Jul 17, 2021 at 07:00 Date seen by a Provider: Jul 17, 2021 Time Seen by a Provider: 07:00 Chief Complaint/History OB-Reason for Admission/Chief: Induction of Labor (Past medical history of seizures, induction at 39 weeks) Hx : 2 Hx Para: 1 Expected Date of Delivery: Jul 24, 2021 Gestational Age in Weeks: 39 Gestational Age in Days: 2 Indication for induction: maternal distance Indication for : other (PMH of seizures; requires induction at 39 weeks) Allergies and Home Medications Allergies Coded Allergies: No Known Drug Allergies (Unverified , 11/29/15) Patient Home Medication List Home Medication List Reviewed: Yes Lamotrigine (Lamictal) 200 Mg Tab, 400 MG PO BID, (Reported) Entered as Reported by: BRITTANY RUFF on 07/17/21918 Last Action: New Order Levetiracetam (Keppra) 1,000 Mg Tablet, 2,000 MG PO BID, (Reported) Entered as Reported by: BRITTANY RUFF on 07/17/21920 Last Action: New Order Mv-Mn/Iron/FA/Herbal/Digestive ( One Tablet) 1 Each Tablet, 1 EACH PO DAILY, (Reported) Entered as Reported by: RAMOS FAN on 07/17/21924 Last Action: New Order Discontinued Medications Docusate Sodium (Colace) 100 Mg Capsule, 100 MG PO BID Discontinued Reason: No Longer Taking Prescribed by: YEE BURGOS on 11/30/15855 Last Action: Discontinued Hydrocodone Bit/Acetaminophen (Lortab 5 Mg Tablet) 1 Each Tablet, 1 TAB PO Q4H PRN Discontinued Reason: No Longer Taking Prescribed by: YEE BURGOS on 11/30/15855 Last Action: Discontinued Lamotrigine (Lamotrigine) 200 Mg Tablet, 200 MG PO DAILY, (Reported) Discontinued Reason: No Longer Taking Entered as Reported by: FRANCES GRANT on 11/30/15742 Last Action: Discontinued Lamotrigine (Lamictal) 200 Mg Tab, 400 MG PO HS, (Reported) Discontinued Reason: No Longer Taking Entered as Reported by: LILI KEENE on 11/30/15932 Last Action: Discontinued Levetiracetam (Levetiracetam) 750 Mg Tablet, 750 MG PO BID, (Reported) Discontinued Reason: No Longer Taking Entered as Reported by: FRANCES GRANT on 11/30/15742 Last Action: Discontinued Norgestimate-Ethinyl Estradiol (Sprintec 28 Day Tablet) 1 Each Tablet, 1 TAB PO DAILY, (Reported) Discontinued Reason: No Longer Taking Entered as Reported by: FRANCES GRANT on 11/30/15742 Last Action: Discontinued [Mucinex Sinus Max] , 2-3 SPRAYS NSEACH Q12H PRN for CONGESTION, (Reported) Discontinued Reason: No Longer Taking Entered as Reported by: LILI KEENE on 11/30/15932 Last Action: Discontinued OB - History Hx of Present Care: Yes Ultrasounds: Normal mid trimester US Obstetrical Complications: None, Other (Seizure disorder) Medical Complications: Neurological (Seizure disorder) Information Induced Hypertension: No Maternal Gestational Diabetes: No Hemorrhage: No Obstetrical History Hx : 2 Hx Para: 1 Hx # Pregnancies: 0 Number of Living Children: 1 Hx Termination: No Hx Multiple Gestation: No Hx Ectopic : No Hx Stillbirth: No Hx Complication: No Hx Induced Hypertens: No Hx Maternal Gestational Diabet: No Hx Hemorrhage: No Delivery History Hx Blood Disorders: No Adverse Rxn to Tranfusion: No Patient Past Medical History Seizure d/o Social History/Family History Alcohol Use: Denies Use Recreational Drug Use: No Smoking Cessation: Never smoker 2nd Hand Smoke Exposure: No OB - Admission Exam Physical Exam Heart: Rhythm Normal Lungs: Clear Abdomen: Gravid Extremities: Normal Reflexes: Normal Cervical Dilatation: 4cm Effacement: 50% Station: -1 Membranes: Ruptured De Jesus Scoring Tool (Modified) Dilation (cm): 1-2cm (1) Effacement (%): 51-79% (2) Descent/Station: -1,0 (2) Cervix Consistency: Soft (2) Cervix Position: Anterior (2) Add 1 point for: Each previous vaginal delivery (1) Labs Laboratory Tests Test 07/17/21 08:25 Range/Units White Blood Count 9.5 4.3-11.0 10^3/uL Red Blood Count 4.07 3.80-5.11 10^6/uL Hemoglobin 12.2 11.5-16.0 g/dL Hematocrit 37 35-52 % Mean Corpuscular Volume 91 80-99 fL Mean Corpuscular Hemoglobin 30 25-34 pg Mean Corpuscular Hemoglobin Concent 33 32-36 g/dL Red Cell Distribution Width 14.2 10.0-14.5 % Platelet Count 193 130-400 10^3/uL Mean Platelet Volume 11.2 9.0-12.2 fL Immature Granulocyte % (Auto) 2 % Neutrophils (%) (Auto) 66 42-75 % Lymphocytes (%) (Auto) 21 12-44 % Monocytes (%) (Auto) 9 0-12 % Eosinophils (%) (Auto) 1 0-10 % Basophils (%) (Auto) 0 0-10 % Neutrophils # (Auto) 6.3 1.8-7.8 10^3/uL Lymphocytes # (Auto) 2.0 1.0-4.0 10^3/uL Monocytes # (Auto) 0.8 0.0-1.0 10^3/uL Eosinophils # (Auto) 0.1 0.0-0.3 10^3/uL Basophils # (Auto) 0.0 0.0-0.1 10^3/uL Immature Granulocyte # (Auto) 0.2 H 0.0-0.1 10^3/uL OB - Assessment/Plan/Diagnosis Assessment Assessment: induction of labor, rupture of membranes Admission Dx 39 and 2 weeks gestation Seizure disorder Admission Status: Inpatient Order (span 2 midnights) Reason for Inpatient Admission: Induction at 39 and 2 weeks Plan Plan: Induction Induction Method: SWATHI JOHNSON DO 07/17/21 1841: OB - Chief Complaint & HPI Chief Complaint/History OB-Reason for Admission/Chief: Induction of Labor (Active seizure disorder, induction at 39 weeks at request/suggestion of MFM) Admission Nurse Assessment Rev: Yes History of Labs A-/- HBsAg - HIV - Hep C - GBS - VDRL NR Rub I Other Had major seizure in second trimester and was transferred to [place] from the ED for evaluation and monitoring. Medication managements have been maximized. Allergies and Home Medications Allergies Coded Allergies: No Known Drug Allergies (Unverified , 11/29/15) Patient Home Medication List Home Medication List Reviewed: Yes Lamotrigine (Lamictal) 200 Mg Tab, 400 MG PO BID, (Reported) Entered as Reported by: BRITTANY RUFF on 07/17/21918 Last Action: New Order Levetiracetam (Keppra) 1,000 Mg Tablet, 2,000 MG PO BID, (Reported) Entered as Reported by: BRITTANY RUFF on 07/17/21920 Last Action: New Order Mv-Mn/Iron/FA/Herbal/Digestive ( One Tablet) 1 Each Tablet, 1 EACH PO DAILY, (Reported) Entered as Reported by: RAMOS FAN on 07/17/21924 Last Action: New Order Discontinued Medications Docusate Sodium (Colace) 100 Mg Capsule, 100 MG PO BID Discontinued Reason: No Longer Taking Prescribed by: YEE BURGOS on 11/30/15855 Last Action: Discontinued Hydrocodone Bit/Acetaminophen (Lortab 5 Mg Tablet) 1 Each Tablet, 1 TAB PO Q4H PRN Discontinued Reason: No Longer Taking Prescribed by: YEE BURGOS on 11/30/15855 Last Action: Discontinued Lamotrigine (Lamotrigine) 200 Mg Tablet, 200 MG PO DAILY, (Reported) Discontinued Reason: No Longer Taking Entered as Reported by: FRANCES GRANT on 11/30/15742 Last Action: Discontinued Lamotrigine (Lamictal) 200 Mg Tab, 400 MG PO HS, (Reported) Discontinued Reason: No Longer Taking Entered as Reported by: LILI KEENE on 11/30/15932 Last Action: Discontinued Levetiracetam (Levetiracetam) 750 Mg Tablet, 750 MG PO BID, (Reported) Discontinued Reason: No Longer Taking Entered as Reported by: FRANCES GRANT on 11/30/15742 Last Action: Discontinued Norgestimate-Ethinyl Estradiol (Sprintec 28 Day Tablet) 1 Each Tablet, 1 TAB PO DAILY, (Reported) Discontinued Reason: No Longer Taking Entered as Reported by: FRANCES GRANT on 11/30/15742 Last Action: Discontinued [Mucinex Sinus Max] , 2-3 SPRAYS NSEACH Q12H PRN for CONGESTION, (Reported) Discontinued Reason: No Longer Taking Entered as Reported by: LILI KEENE on 11/30/15932 Last Action: Discontinued OB - History Hx of Present Ultrasounds: Other (Has been monitored by MFM and growth has been adequate. assessment has been adequate. ) OB - Admission Exam Physical Exam Cervical Dilatation: 2cm Membranes: Intact Heart Rate: 140's Accelerations: Accelerations Present Decelerations: No Decelerations Short Term Variability: Present Skilled Nursing Variability: Average (6-25) Contractions on Admission: 6-10 Minutes Apart OB - Assessment/Plan/Diagnosis Assessment Admission Dx epilepsy/ 39 week gestation Admission Status: Inpatient Order (span 2 midnights) Reason for Inpatient Admission: labor Plan Induction Method: AROM Supervisory-Addendum Brief Verification & Attestation Participated in pt care: history Personally performed: supervision of care Care discussed with: Medical Student Procedures: n/a Patient was examined and history and physical was supervised with the patient and agree with assessment VALDO MILIAN Jul 17, 2021 09:09 SWATHI JARRETT DO Jul 17, 2021 18:41
[2021-07-17] MEDS ORDERED: NF-LAMO200 PO (09:19)
[2021-07-17] MEDS ORDERED: LEVE100015 PO (09:21)
[2021-07-17] MEDS ORDERED: MV-M1TAB66 PO (09:25)
[2021-07-17] MEDS ORDERED: fentaNYL 2 mcg/ml BUPIVA 0.125 100 ML ONE (11:23)
[2021-07-17] MEDS ORDERED: fentaNYL INJ 100 MCG/2 ML AMP ONE (11:33)
[2021-07-17] MEDS ORDERED: BUPIVACAINE 0.25% 30 ML (SENSORCAINE) VIAL ONE (11:33)
[2021-07-17 11:40] LABS: BILIRUBIN,URINE NEGATIVE (NEGATIVE); CLARITY,URINE CLEAR; COLOR,URINE YELLOW; GLUCOSE, URINE (UA) 1+ (NEGATIVE); KETONES,URINE NEGATIVE (NEGATIVE); LEUKOCYTE ESTERASE ,URINE 2+ (NEGATIVE); NITRITE,URINE NEGATIVE (NEGATIVE); PH,URINE 6.5 (5-9); PROTEIN,URINE NEGATIVE (NEGATIVE)
[2021-07-17] MEDS ORDERED: fentaNYL 2 mcg/ml BUPIVA 0.125 100 ML IV SCH (11:45)
[2021-07-17] MEDS ORDERED: diphenhydrAMINE 50 MG/ML INJ (BENADRYL) IV PRN (11:45)
[2021-07-17] MEDS ORDERED: LACTATED RINGERS 1,000 ML IV ONE (11:45)
[2021-07-17] MEDS ORDERED: ONDANSETRON 4 MG/2 ML (SDV) Z0FRAN IV PRN (11:45)
[2021-07-17] MEDS ORDERED: CATHETER FLUSH 10 ML SYR IV PRN (11:45)
[2021-07-17] MEDS ORDERED: NALOXONE 0.4 MG/ML 1 ML (NARCAN) VIAL IV PRN (11:45)
[2021-07-17 11:52] LABS: BACTERIA,URINE FEW /HPF; RBC,URINE RARE /HPF; WBC,URINE 50-100 /HPF
[2021-07-17] MEDS ORDERED: CATHETER FLUSH 10 ML SYR IV SCH ×2 (14:00→22:00)
[2021-07-17] MEDS ORDERED: LIDOCAINE 1% INJ 20 ML 20 ML VIAL ONE (15:00)
[2021-07-17] MEDS ORDERED: MEASLES,MUMPS,RUBELLA 1 EA INJ SQ ONE (15:30)
[2021-07-17] MEDS ORDERED: TETANUS,DIPTH,PERTUSS P/F (BOOSTRIX) 0.5 ML VIAL IM ONE (15:30)
[2021-07-17] MEDS ORDERED: DIBUCAINE 1% OINTMENT 30 GM TUBE TOP PRN (15:30)
[2021-07-17] MEDS ORDERED: BENZOCAINE/MENTHOL (DERMOPLAST) 56 ML CAN TP PRN (15:30)
[2021-07-17] MEDS ORDERED: WITCH HAZEL(TUCKS) 40 EA JAR TOP PRN (15:30)
--- NOTE | 2021-07-17 15:31 | OB Labor & Delivery Record ---
Vag Delivery Note Vag Delivery Note Date of Delivery: 07/17/21 Preoperative Diagnosis: Damon Wu is a (30 /Para 2 / 1,Gestational Age 39 week gestation with history of seizure disorder Postoperative Diagnosis: Same Surgeon: SWATHI JARRETT Lemon Grower: Kim Arteaga, MS III Anesthesia: epidural Delivery Type: Findings: Viable female infant, apgars 7/9, weight 7#3oz Lacerations: left vaginal wall Intact placenta with 3 vessel cord. No nuchal cord, body cord or shoulder dystocia Estimated Blood Loss: 200 ml Complications: None Condition: Stable Description of Procedure: The patient is a 30 year old female who presented for induction (history of seizure disorder). She was admitted and informed consent was obtained. Her labor course was remarkable for AROM and epidural. She progressed to complete dilatation and began to push. She was then set up for delivery. The infant's head was delivered atraumatically in the OA position. The shoulders and remainder of the infant's body were then delivered without difficulty. Upon delivery, the head was held below the level of the perineum and the mouth and nares were bulb suctioned. The cord was doubly clamped and cut and the was handed off to the pediatric staff. An intact placenta with 3-vessel cord delivered via [place] and there was found to be minimal bleeding.~ Vigorous fundal massage was performed and the fundus was found to be firm. IV oxytocin was given. Examination of the vagina and perineum revealed a small, vaginal laceration repaired in the usual fashion with 3-0 vicryl suture. Following the repair, sponge, instrument and needle counts were correct. Mom and baby were both in stable condition in the labor suite. Vitals - Labs Vital Signs - I&O Vital Signs Date Time Temp Pulse Resp B/P (MAP) Pulse Ox O2 Delivery O2 Flow Rate FiO2 07/17/21 13:13 84 18 112/67 (82) 97 Room Air 07/17/21 12:58 90 18 115/67 (83) 94 Room Air 07/17/21 12:43 88 18 100/61 (74) 96 Room Air 07/17/21 12:28 86 18 103/63 (76) 96 Room Air 07/17/21 12:10 97 18 104/59 (74) 98 Room Air 07/17/21 12:07 88 18 105/60 (75) 97 Room Air 07/17/21 12:04 95 18 111/65 (80) Room Air 07/17/21 12:01 90 18 103/60 (74) 95 Room Air 07/17/21 11:57 92 18 108/60 (76) Room Air 07/17/21 11:54 83 18 109/64 (79) 97 Room Air 07/17/21 11:51 91 18 112/67 (82) 98 Room Air 07/17/21 11:49 91 18 109/66 (80) 98 Room Air 07/17/21 11:46 93 18 125/81 (96) 97 Room Air 07/17/21 11:43 86 18 123/77 (92) Room Air 07/17/21 11:40 91 18 119/76 (90) 99 Room Air 07/17/21 11:32 84 18 114/70 (85) Room Air 07/17/21 11:18 77 18 117/73 (88) Room Air 07/17/21 11:11 36.8 07/17/21 11:02 89 18 114/71 (85) Room Air 07/17/21 10:49 90 18 111/67 (82) Room Air 07/17/21 10:32 98 18 110/76 (87) Room Air 07/17/21 10:17 90 18 108/72 (84) Room Air 07/17/21 09:18 37.0 97 18 97 Room Air 07/17/21 09:16 37.0 95 18 112/74 (87) 98 Room Air 07/17/21 07:34 37.5 121 18 114/74 (87) 98 Room Air Labs Laboratory Tests 07/17/21 08:25: White Blood Count 9.5, Red Blood Count 4.07, Hemoglobin 12.2, Hematocrit 37, Mean Corpuscular Volume 91, Mean Corpuscular Hemoglobin 30, Mean Corpuscular Hemoglobin Concent 33, Red Cell Distribution Width 14.2, Platelet Count 193, Mean Platelet Volume 11.2, Immature Granulocyte % (Auto) 2, Neutrophils (%) (Auto) 66, Lymphocytes (%) (Auto) 21, Monocytes (%) (Auto) 9, Eosinophils (%) (Auto) 1, Basophils (%) (Auto) 0, Neutrophils # (Auto) 6.3, Lymphocytes # (Auto) 2.0, Monocytes # (Auto) 0.8, Eosinophils # (Auto) 0.1, Basophils # (Auto) 0.0, Immature Granulocyte # (Auto) 0.2H 07/17/21 11:40: Urine Color YELLOW, Urine Clarity CLEAR, Urine pH 6.5, Urine Specific Carter 1.025H, Urine Protein NEGATIVE, Urine Glucose (UA) 1+H, Urine Ketones NEGATIVE, Urine Nitrite NEGATIVE, Urine Bilirubin NEGATIVE, Urine Urobilinogen 0.2, Urine Leukocyte Esterase 2+H, Urine RBC (Auto) TRACE-I, Urine RBC RARE, Urine WBC 50- 100H, Urine Squamous Epithelial Cells 10-25H, Urine Crystals NONE, Urine Bacteria FEWH, Urine Casts NONE, Urine Mucus SMALLH, Urine Culture Indicated YES SWATHI JARRETT DO Jul 17, 2021 15:30
[2021-07-17] MEDS ORDERED: PATIENT MAY USE OWN MEDS, ALL MC SCH (15:45)
[2021-07-17] MEDS: IBUPROFEN 600 MG (MOTRIN) TAB PO SCH ×2 (16:24→21:35)
[2021-07-17] MEDS: ACETAMINOPHEN 500 MG TAB (TYLENOL) PO SCH (18:29)
[2021-07-17] MEDS ORDERED: DOCUSATE SODIUM 100 MG (COLACE) CAP PO SCH (21:00)
[2021-07-17] MEDS: DOCUSATE SODIUM 100 MG (COLACE) CAP PO SCH (21:35)
[2021-07-18 00:28] VITALS: BP 99/59
[2021-07-18] MEDS: ACETAMINOPHEN 500 MG TAB (TYLENOL) PO SCH ×3 (00:28→15:43)
[2021-07-18 04:42] VITALS: BP 96/56
[2021-07-18] MEDS: IBUPROFEN 600 MG (MOTRIN) TAB PO SCH ×2 (04:42→11:40)
[2021-07-18 06:59] LABS: BASOPHILS # (AUTO) 0.1 10^3/uL (0.0-0.1); BASOPHILS % (AUTO) 1 % (0-10); EOSINOPHILS # (AUTO) 0.1 10^3/uL (0.0-0.3); EOSINOPHILS % (AUTO) 1 % (0-10); HEMATOCRIT 37 % (35-52); HEMOGLOBIN 11.4 g/dL (11.5-16.0); LYMPHOCYTES % (AUTO) 18 % (12-44); MEAN CORPUSCULAR HEMOGLOBIN 29 pg (25-34); MEAN CORPUSCULAR HGB CONC 31 g/dL (32-36); MEAN CORPUSCULAR VOLUME 94 fL (80-99); MEAN PLATELET VOLUME 11.5 fL (9.0-12.2); MONOCYTES % (AUTO) 9 % (0-12); NEUTROPHILS # (AUTO) 7.8 10^3/uL (1.8-7.8); NEUTROPHILS % (AUTO) 71 % (42-75); PLATELET COUNT 168 10^3/uL (130-400)
[2021-07-18] MEDS ORDERED: PRENATAL VITAMIN 1 EA TAB PO SCH (07:00)
--- NOTE | 2021-07-18 07:53 | Anesthesia-Regional Post-Op ---
Regional Patient Condition Mental Status: Alert, Oriented x3 Circulation: Same as Pre-Op Headache: Absent Sensation: Full Recovery Motor Block: Absent Post Op Complications Complications None Follow Up Care/Instructions Patient Instructions None needed. Anesthesia/Patient Condition Patient is doing well, no complaints, stable vital signs, no apparent adverse anesthesia problems. No complications reported per nursing. D/C home per [facility] Criteria: Yes VIGNESH CURIEL CRNA Jul 18, 2021 07:53
[2021-07-18] MEDS ORDERED: ACET-93 PO (08:40)
[2021-07-18] MEDS ORDERED: IBUP-844 PO (08:40)
[2021-07-18 08:41] VITALS: BP 120/57
--- NOTE | 2021-07-18 08:41 | Discharge Inst-Women's Service ---
Discharge Inst-Women's Serv Depart Medication/Instructions New, Converted or Re-Newed RX: Transmitted to Pharmacy Final Diagnosis seizure disorder/epilepsy RH - 39 week gestation vaginal delivery Problems Reviewed?: Yes Consults/Follow Up Additional Follow Up: Yes (6 week pp exam) Activity Activity: Activity as Tolerated Driving Instructions: You May Drive NO SMOKING: NO SMOKING Nothing Inside Vagina: No Douching, No [place], No Tampons Diet Discharge Diet: No Restrictions Symptoms to Report to : Swelling Increased, Bleeding Excessive, Pain Increased, Fever Over 101 Degrees F, Vaginal Bleeding Increase, Cramps in Feet or Legs, Vaginal Discharge Foul For Any Problems or Questions: Contact Your Physician Skin/Wound Care Bathing Instructions: SWATHI Mendez DO Jul 18, 2021 08:41
[2021-07-18] MEDS: DOCUSATE SODIUM 100 MG (COLACE) CAP PO SCH (08:43)
--- NOTE | 2021-07-18 08:45 | Postpartum Progress Note ---
Note Note Day # 1 s/p . Has resumed her antiepileptic medications. States she has a follow up appointment scheduled with her neurologist in July or Aug. Subjective: Patient is without complaints. Ambulating, voiding. Tolerating a regular diet without nausea or vomiting. Normal lochia. Pain is well controlled with oral pain medications. breast feeding. Objective: Laboratory Tests Test 07/17/21 11:40 07/18/21 06:27 Range/Units Urine Color YELLOW Urine Clarity CLEAR Urine pH 6.5 5-9 Urine Specific Mead 1.025 H 1.016-1.022 Urine Protein NEGATIVE NEGATIVE Urine Glucose (UA) 1+ H NEGATIVE Urine Ketones NEGATIVE NEGATIVE Urine Nitrite NEGATIVE NEGATIVE Urine Bilirubin NEGATIVE NEGATIVE Urine Urobilinogen 0.2 < = 1.0 MG/DL Urine Leukocyte Esterase 2+ H NEGATIVE Urine RBC (Auto) TRACE-I NEGATIVE Urine RBC RARE /HPF Urine WBC 50-100 H /HPF Urine Squamous Epithelial Cells 10-25 H /HPF Urine Crystals NONE /LPF Urine Bacteria FEW H /HPF Urine Casts NONE /LPF Urine Mucus SMALL H /LPF Urine Culture Indicated YES White Blood Count 11.0 4.3-11.0 10^3/uL Red Blood Count 3.88 3.80-5.11 10^6/uL Hemoglobin 11.4 L 11.5-16.0 g/dL Hematocrit 37 35-52 % Mean Corpuscular Volume 94 80-99 fL Mean Corpuscular Hemoglobin 29 25-34 pg Mean Corpuscular Hemoglobin Concent 31 L 32-36 g/dL Red Cell Distribution Width 14.6 H 10.0-14.5 % Platelet Count 168 130-400 10^3/uL Mean Platelet Volume 11.5 9.0-12.2 fL Immature Granulocyte % (Auto) 1 % Neutrophils (%) (Auto) 71 42-75 % Lymphocytes (%) (Auto) 18 12-44 % Monocytes (%) (Auto) 9 0-12 % Eosinophils (%) (Auto) 1 0-10 % Basophils (%) (Auto) 1 0-10 % Neutrophils # (Auto) 7.8 1.8-7.8 10^3/uL Lymphocytes # (Auto) 2.0 1.0-4.0 10^3/uL Monocytes # (Auto) 1.0 0.0-1.0 10^3/uL Eosinophils # (Auto) 0.1 0.0-0.3 10^3/uL Basophils # (Auto) 0.1 0.0-0.1 10^3/uL Immature Granulocyte # (Auto) 0.1 0.0-0.1 10^3/uL 07/17/21 07/18/21 07/18/21 07/18/21 21:35 00:28 04:42 08:41 Temp 36.5 36.6 36.4 37.0 Pulse 81 78 80 89 Resp 18 18 18 18 B/P (MAP) 111/65 (80) 99/59 (72) 96/56 (69) 120/57 (78) Pulse Ox 98 98 98 97 O2 Delivery Room Air Room Air Room Air Room Air 07/18/21 00:00 Intake Total 500 ml Balance 500 ml Physical Exam: General - Alert and oriented, no apparent distress Abdomen - Soft, appropriately tender to palpation, non-distended, fundus firm at umbilicus Extremities - no edema, negative Risa's bilaterally Assessment: 1. post- day # 1, status post spontaneous vaginal delivery. Recovering well, hemodynamically stable 2. Seizure disorder Plan: Routine care. Encourage breast feeding. Encourage ambulation. Ferrous sulfate supplementation. Plan for discharge today Vitals - Labs Vital Signs - I&O Vital Signs Date Time Temp Pulse Resp B/P (MAP) Pulse Ox O2 Delivery O2 Flow Rate FiO2 07/18/21 08:41 37.0 89 18 120/57 (78) 97 Room Air 07/18/21 04:42 36.4 80 18 96/56 (69) 98 Room Air 07/18/21 00:28 36.6 78 18 99/59 (72) 98 Room Air 07/17/21 21:35 36.5 81 18 111/65 (80) 98 Room Air 07/17/21 18:12 103 18 120/57 (78) Room Air 07/17/21 17:57 83 18 114/58 (76) Room Air 07/17/21 17:42 93 18 115/69 (84) Room Air 07/17/21 17:27 85 18 113/66 (82) Room Air 07/17/21 17:12 71 18 122/72 (89) Room Air 07/17/21 16:57 82 18 117/69 (85) Room Air 07/17/21 16:42 80 18 116/75 (89) Room Air 07/17/21 16:27 73 18 114/71 (85) Room Air 07/17/21 16:17 36.8 07/17/21 16:12 36.5 80 18 113/77 (89) Room Air 07/17/21 15:57 73 18 107/73 (84) Room Air 07/17/21 15:42 78 18 106/81 (89) Room Air 07/17/21 15:27 36.6 88 18 112/72 (85) Room Air 07/17/21 14:59 94 18 91/55 (67) 99 Room Air 07/17/21 14:43 91 18 110/70 (83) 98 Room Air 07/17/21 14:28 98 18 110/66 (81) 98 Room Air 07/17/21 14:13 86 18 111/65 (80) 96 Room Air 07/17/21 13:57 82 18 106/63 (77) 97 Room Air 07/17/21 13:43 89 18 118/70 (86) 96 Room Air 07/17/21 13:28 36.5 85 18 113/67 (82) 97 Room Air 07/17/21 13:13 84 18 112/67 (82) 97 Room Air 07/17/21 12:58 90 18 115/67 (83) 94 Room Air 07/17/21 12:43 88 18 100/61 (74) 96 Room Air 07/17/21 12:28 86 18 103/63 (76) 96 Room Air 07/17/21 12:10 97 18 104/59 (74) 98 Room Air 07/17/21 12:07 88 18 105/60 (75) 97 Room Air 07/17/21 12:04 95 18 111/65 (80) Room Air 07/17/21 12:01 90 18 103/60 (74) 95 Room Air 07/17/21 11:57 92 18 108/60 (76) Room Air 07/17/21 11:54 83 18 109/64 (79) 97 Room Air 07/17/21 11:51 91 18 112/67 (82) 98 Room Air 07/17/21 11:49 91 18 109/66 (80) 98 Room Air 07/17/21 11:46 93 18 125/81 (96) 97 Room Air 07/17/21 11:43 86 18 123/77 (92) Room Air 07/17/21 11:40 91 18 119/76 (90) 99 Room Air 07/17/21 11:32 84 18 114/70 (85) Room Air 07/17/21 11:18 77 18 117/73 (88) Room Air 07/17/21 11:11 36.8 07/17/21 11:02 89 18 114/71 (85) Room Air 07/17/21 10:49 90 18 111/67 (82) Room Air 07/17/21 10:32 98 18 110/76 (87) Room Air 07/17/21 10:17 90 18 108/72 (84) Room Air 07/17/21 09:18 37.0 97 18 97 Room Air 07/17/21 09:16 37.0 95 18 112/74 (87) 98 Room Air I & O 07/18/21 07:00 Intake Total 1500 ml Balance 1500 ml Labs Laboratory Tests 07/17/21 11:40: Urine Color YELLOW, Urine Clarity CLEAR, Urine pH 6.5, Urine Specific Mead 1.025H, Urine Protein NEGATIVE, Urine Glucose (UA) 1+H, Urine Ketones NEGATIVE, Urine Nitrite NEGATIVE, Urine Bilirubin NEGATIVE, Urine Urobilinogen 0.2, Urine Leukocyte Esterase 2+H, Urine RBC (Auto) TRACE-I, Urine RBC RARE, Urine WBC 50- 100H, Urine Squamous Epithelial Cells 10-25H, Urine Crystals NONE, Urine Bacteria FEWH, Urine Casts NONE, Urine Mucus SMALLH, Urine Culture Indicated YES 07/18/21 06:27: White Blood Count 11.0, Red Blood Count 3.88, Hemoglobin 11.4L, Hematocrit 37, Mean Corpuscular Volume 94, Mean Corpuscular Hemoglobin 29, Mean Corpuscular Hemoglobin Concent 31L, Red Cell Distribution Width 14.6H, Platelet Count 168, Mean Platelet Volume 11.5, Immature Granulocyte % (Auto) 1, Neutrophils (%) (Auto) 71, Lymphocytes (%) (Auto) 18, Monocytes (%) (Auto) 9, Eosinophils (%) (Auto) 1, Basophils (%) (Auto) 1, Neutrophils # (Auto) 7.8, Lymphocytes # (Auto) 2.0, Monocytes # (Auto) 1.0, Eosinophils # (Auto) 0.1, Basophils # (Auto) 0.1, Immature Granulocyte # (Auto) 0.1 SWATHI JARRETT DO Jul 18, 2021 08:45
[2021-07-18] MEDS ORDERED: FERROUS SULF 325 MG (IRON) TAB PO SCH (09:00)
[2021-07-18 12:00] VITALS: BP 106/59
[2021-07-18 17:40] VITALS: BP 106/59
== END 2021-07-18 17:40 | disposition home or self-care (01) | DRG 807 ==
LOC: LDRP 07:00
PROVIDERS: ADMIT Obstetrics & Gynecology; ATTEND Obstetrics & Gynecology
PROC: 10E0XZZ Delivery of Products of Conception, External Approach (ICD-10-PCS; principal; 2021-07-17)
PROC: 0UQGXZZ Repair Vagina, External Approach (ICD-10-PCS; 2021-07-17)
PROC: 10907ZC Drainage of Amniotic Fluid, Therapeutic from Products of Conception, Via Natural or Artificial Opening (ICD-10-PCS; 2021-07-17)
DX: O99.354 Diseases of the nervous system complicating childbirth (principal); Z37.0 Single live birth; Z3A.39 39 weeks gestation of pregnancy; G40.909 Epilepsy, unspecified, not intractable, without status epilepticus; Z79.899 Other long term (current) drug therapy; O71.4 Obstetric high vaginal laceration alone
CPT/HCPCS: 36415; 80175; 80177; 81000; 83033; 85025; 86850; 86870; 86900; 86901; 87088